=== PATIENT | female | born 1965 | race Caucasian/White ===

== ENCOUNTER 2022-06-17 11:48 | Outpatient (CLI) | payer OTHER | END 2022-06-17 11:51 | disposition home or self-care (01) | LOC: SONOGRAMA 11:48 | PROVIDERS: ATTEND Internal Medicine Cardiovascular Disease | DX: R10.9 Unspecified abdominal pain (principal); N39.0 Urinary tract infection, site not specified ==

== ENCOUNTER 2022-09-15 08:19 | Outpatient (CLI) | payer OTHER ==
[~2022-09-15 08:19] MED LIST: METHOCARBAMOL500 MG PO
== END 2022-09-15 08:21 | disposition home or self-care (01) ==
LOC: LAB 08:19
DX: N39.0 Urinary tract infection, site not specified (principal); D68.9 Coagulation defect, unspecified

== ENCOUNTER 2023-01-21 08:16 | Outpatient (CLI) | payer OTHER ==
[~2023-01-21 08:16] MED LIST changes: +GABAPENTIN100 M2 PO; +MEDROLPACK PO
[2023-01-21 09:34] LABS: HEMATOCRIT 39.5 % (36.0-45.00); HEMOGLOBIN 13.5 g/dL (12.0-15.00); MEAN CELL VOLUME 85.6 fL (80.00-100.00); MEAN CORPUSCULAR HEMOGLOBIN 29.2 pg (27.00-32.0); MEAN CORPUSCULAR HGB CONC 34.1 g/dl (32.0-36.0); PLATELET COUNT 241 K/uL (150-450); RED BLOOD COUNT 4.62 M/uL (4.00-6.00); RED CELL DISTRIBUTION WIDTH 13.8 % (11.5-14.5)
[2023-01-21 10:02] LABS: URINE APPEARANCE Clear; URINE BILIRRUBIN Negative (NEGATIVE); URINE BLOOD Moderate; URINE COLOR Yellow; URINE GLUCOSE Negative (NEGATIVE); URINE LEUKOCYTE Moderate; URINE NITRATE Positive; URINE PROTEIN Negative (NEGATIVE)
[2023-01-21 10:06] LABS: URINE EPITHELIAL CELLS 16.2 uL (0.0-38.8); URINE RBC 32.9 uL (0.0-20.8); URINE WBC 34.9 uL (0.0-23.2)
[2023-01-21 10:18] LABS: CREATININE SERUM 0.89 mg/dL (0.55-1.02); GFR 64.92; POTASSIUM 4.29 mEq/L (3.5-5.1)
[2023-01-21 10:19] LABS: ALBUMIN 3.9 gm/dL (3.4-5.0); BILIRUBIN TOTAL 0.5 mg/dL (0.3-1.2); CALCIUM 9.3 mg/dL (8.5-10.1); CHOL HDL RATIO 3.9 (0-5.0); GLOBULINA 2.7 G/DL (2.4-3.5); T4 TOTAL 8.46 UG/DL (4.8-13.9); TOTAL PROTEIN 6.6 gm/dL (6.4-8.2); TSH 0.722 uIU/mL (0.358-3.74)
[2023-01-21 10:20] LABS: URINE BACTERIA > 9821.5 uL (0.0-1933)
== END 2023-01-21 08:17 | disposition home or self-care (01) ==
LOC: LAB 08:16
PROVIDERS: ATTEND Internal Medicine Cardiovascular Disease
DX: I10 Essential (primary) hypertension (principal); E11.9 Type 2 diabetes mellitus without complications; E03.9 Hypothyroidism, unspecified; E78.2 Mixed hyperlipidemia; Z12.11 Encounter for screening for malignant neoplasm of colon; E55.9 Vitamin D deficiency, unspecified

== ENCOUNTER 2023-09-12 10:26 | Outpatient (CLI) | payer OTHER ==
[2023-09-12 11:02] LABS: PH,URINE 6.5 (5.0-8.0); URINE APPEARANCE Cloudy; URINE BILIRRUBIN Negative (NEGATIVE); URINE BLOOD NHT; URINE COLOR Yellow; URINE GLUCOSE Negative (NEGATIVE); URINE LEUKOCYTE Small; URINE NITRATE Positive; URINE PROTEIN Negative (NEGATIVE)
[2023-09-12 11:12] LABS: URINE EPITHELIAL CELLS 21.1 uL (0.0-38.8); URINE RBC 81.5 uL (0.0-20.8); URINE WBC 63.1 uL (0.0-23.2)
[2023-09-12 11:19] LABS: URINE BACTERIA > 9821.5 uL (0.0-1933)
== END 2023-09-12 10:27 | disposition home or self-care (01) ==
LOC: LAB 10:26
PROVIDERS: ATTEND Internal Medicine Cardiovascular Disease
DX: N39.0 Urinary tract infection, site not specified (principal)

== ENCOUNTER 2023-09-30 08:28 | Outpatient (CLI) | payer OTHER | END 2023-09-30 08:32 | disposition home or self-care (01) | LOC: NUCLEAR 08:28 | PROVIDERS: ATTEND Internal Medicine Cardiovascular Disease | DX: I10 Essential (primary) hypertension (principal) ==

== ENCOUNTER → 2024-01-12 07:16 | Outpatient (CLI) | payer OTHER ==
[2024-01-12 07:44] LABS: HEMATOCRIT 40.1 % (36.0-45.00); MEAN CELL VOLUME 85.5 fL (80.00-100.00); MEAN CORPUSCULAR HEMOGLOBIN 29.8 pg (27.00-32.0); MEAN CORPUSCULAR HGB CONC 34.8 g/dl (32.0-36.0); PLATELET COUNT 271 K/uL (150-450); RED BLOOD COUNT 4.69 M/uL (4.00-6.00); RED CELL DISTRIBUTION WIDTH 13.9 % (11.5-14.5)
[2024-01-12 07:45] LABS: PH,URINE 5.5 (5.0-8.0); URINE APPEARANCE Cloudy; URINE BILIRRUBIN Negative (NEGATIVE); URINE BLOOD Small; URINE COLOR Yellow; URINE GLUCOSE Negative (NEGATIVE); URINE KETONE Trace (NEGATIVE); URINE LEUKOCYTE Small; URINE NITRATE Positive; URINE PROTEIN Trace (NEGATIVE)
[2024-01-12 07:46] LABS: URINE EPITHELIAL CELLS 26.1 uL (0.0-38.8); URINE RBC 30.9 uL (0.0-20.8); URINE WBC 69.5 uL (0.0-23.2)
[2024-01-12 07:49] LABS: URINE BACTERIA > 9821.5 uL (0.0-1933); URINE CAST 0.61 uL (0.0-1.40)
[2024-01-12 08:31] LABS: CALCIUM 9.6 mg/dL (8.5-10.1); CREATININE SERUM 0.86 mg/dL (0.55-1.02); GFR 67.31; MAGNESIUM 2.3 mg/dL (1.8-2.4); POTASSIUM 4.06 mEq/L (3.5-5.1)
[2024-01-12 08:51] LABS: TSH 1.49 uIU/mL (0.358-3.74)
== END | disposition home or self-care (01) ==
LOC: LAB 07:16
PROVIDERS: ATTEND General Practice
DX: D64.9 Anemia, unspecified (principal); I10 Essential (primary) hypertension; K76.0 Fatty (change of) liver, not elsewhere classified; N39.0 Urinary tract infection, site not specified; E03.9 Hypothyroidism, unspecified; E83.42 Hypomagnesemia

== ENCOUNTER 2024-01-17 14:29 | Outpatient (CLI) | payer OTHER | END 2024-01-17 14:30 | disposition home or self-care (01) | LOC: LAB 14:29 | PROVIDERS: ATTEND General Practice | DX: N39.0 Urinary tract infection, site not specified (principal) ==

== ENCOUNTER → 2024-06-29 08:13 | Outpatient (CLI) | payer OTHER ==
[2024-06-29 09:32] LABS: HEMATOCRIT 41.6 % (36.0-45.00); HEMOGLOBIN 14.1 g/dL (12.0-15.00); MEAN CORPUSCULAR HEMOGLOBIN 29.6 pg (27.00-32.0); PLATELET COUNT 300 K/uL (150-450); RED BLOOD COUNT 4.78 M/uL (4.00-6.00)
[2024-06-29 09:42] LABS: PH,URINE 5.5 (5.0-8.0); URINE APPEARANCE Clear; URINE BILIRRUBIN Negative (NEGATIVE); URINE BLOOD Small; URINE COLOR Yellow; URINE GLUCOSE Negative (NEGATIVE); URINE KETONE Negative (NEGATIVE); URINE LEUKOCYTE Negative; URINE NITRATE Negative; URINE PROTEIN Negative (NEGATIVE); URINE UROBILINOGEN 0.2 E.U./dl
[2024-06-29 09:49] LABS: URINE BACTERIA 222.7 uL (0.0-1933); URINE WBC 6.3 uL (0.0-23.2)
[2024-06-29 09:57] LABS: URINE CAST 0.14 uL (0.0-1.40)
[2024-06-29 10:13] LABS: ALBUMIN 4.3 gm/dL (3.4-5.0); BILIRUBIN TOTAL 0.85 mg/dL (0.3-1.2); CALCIUM 10.1 mg/dL (8.5-10.1); CHOL HDL RATIO 3.6 (0-5.0); CREATININE SERUM 0.93 mg/dL (0.55-1.02); GFR 61.49; GLOBULINA 3.1 G/DL (2.4-3.5); POTASSIUM 4.59 mEq/L (3.5-5.1); TOTAL PROTEIN 7.4 gm/dL (6.4-8.2); TSH 1.55 uIU/mL (0.358-3.74)
== END | disposition home or self-care (01) ==
LOC: LAB 08:13
PROVIDERS: ATTEND General Practice
DX: I10 Essential (primary) hypertension (principal); M71.9 Bursopathy, unspecified; E78.5 Hyperlipidemia, unspecified; E03.9 Hypothyroidism, unspecified; N39.0 Urinary tract infection, site not specified; R80.9 Proteinuria, unspecified; R73.03 Prediabetes